=== PATIENT | male | born 1960 | race Caucasian/White ===

== ENCOUNTER 2017-04-17 07:30 | Inpatient (IN) | payer OTHER ==
[~2017-04-17] VITALS: Ht 188 cm; Wt 134.7 kg
[2017-05-14 13:50] LABS: CLARITY,URINE CLEAR (Clear); COLOR,URINE YELLOW (Yellow); GLUCOSE, URINE NEGATIVE (Neg); KETONES,URINE NEGATIVE (Neg); LEUKOCYTE ESTERASE ,URINE NEGATIVE (Neg); NITRITES, URINE NEGATIVE (Neg); OCCULT BLOOD,URINE TRACE-INTACT (Neg); PROTEIN,URINE NEGATIVE (Neg); UROBILINOGEN,URINE 0.2 E.U/dL (0.2-1.0)
[2017-05-14 13:52] LABS: UA COLLECTION TYPE VOIDED
[2017-05-14 14:01] LABS: BACTERIA,URINE NONE SEEN /HPF (Neg); RBC,URINE 0-2 /HPF (0-2); SQUAMOUS EPITHELIAL CELL,UR FEW /LPF (FEW); WBC,URINE 0-4 /HPF (0-4)
[2017-05-14 14:03] LABS: BASOPHILS % (AUTO) 0.4 % (0-1); EOSINOPHILS # (AUTO) 0.2 X10'3 (0-0.9); EOSINOPHILS % (AUTO) 2.3 % (0-6); LYMPHOCYTES # (AUTO) 2.6 X10'3 (1.1-4.8); LYMPHOCYTES % (AUTO) 24.7 % (21-51); MEAN CORPUSCULAR HEMOGLOBIN 28.8 PG (27.0-31.0); MEAN CORPUSCULAR HGB CONC 34.3 % (33.0-36.5); MEAN PLATELET VOLUME 8.9 FL (7.4-10.4); MONOCYTES # (AUTO) 0.8 X10'3 (0-0.9); MONOCYTES % (AUTO) 7.5 % (2-12); NEUTROPHILS # (AUTO) 6.9 X10'3 (1.8-7.7); NEUTROPHILS % (AUTO) 65.1 % (42-75); PRE OP HEMATOCRIT 47.9 % (42.0-52.0); PRE OP HEMOGLOBIN 16.4 g/dL (14.0-17.9); PRE OP PLATELET COUNT 235 X10'3 (140-440); RED CELL DISTRIBUTION WIDTH 13.3 % (11.5-14.5)
[2017-05-14] MEDS ORDERED: POTA10TA15 PO (14:06)
[2017-05-14] MEDS ORDERED: SYN0.088T PO (14:06)
[2017-05-14] MEDS ORDERED: SPIR25TA3 PO (14:06)
[2017-05-14] MEDS ORDERED: HYDR-3972 PO (14:06)
[2017-05-14] MEDS ORDERED: ATOR40TA72 PO (14:06)
[2017-05-14] MEDS ORDERED: SERT100T10 PO (14:06)
[2017-05-14] MEDS ORDERED: DICL50TA8 PO (14:06)
[2017-05-14] MEDS ORDERED: FURO20TA4 PO (14:06)
[2017-05-14] MEDS ORDERED: TOPI200C6 PO (14:06)
[2017-05-14] MEDS ORDERED: B6 PO (16:39)
[2017-05-14] MEDS ORDERED: MONT10TA24 PO (16:39)
[2017-05-14] MEDS ORDERED: FLAX100025 PO (16:39)
[2017-05-14] MEDS ORDERED: CYAN100070 PO (16:39)
[2017-05-14] MEDS ORDERED: FISH1CAP15 PO (16:39)
[2017-05-14] MEDS ORDERED: MAGN500C16 PO (16:39)
[2017-05-14] MEDS ORDERED: ARIP5TAB4 PO (16:39)
[2017-05-14] MEDS ORDERED: CHOL400C8 PO (16:40)
[2017-05-15] VITALS (17 sets, daily range): BP systolic 108–159; BP diastolic 72–100
[2017-05-15] MEDS ORDERED: ringers solution, lacted 1,000 ML IV SCH ×2 (05:00→13:29)
[2017-05-15] MEDS ORDERED: vancomycin inj 1,500 MG in normal saline 300ml IV soln IV ONE (05:30)
[2017-05-15] MEDS ORDERED: ceFAZolin inj. 3,000 MG in normal saline 100ml IV soln 100 ML IV ONE (05:30)
[2017-05-15] MEDS ORDERED: famotidine 20mg tablet PO ONE (05:30)
[2017-05-15] MEDS ORDERED: LIDOcaine 1% (10mg/ml) 2ml vial ONE (09:16)
[2017-05-15] MEDS ORDERED: ketorolac trometh. 30mg/ml inj. ONE (09:38)
[2017-05-15] MEDS ORDERED: ROPIVAcaine 0.5% (5mg/ml) 30ml vial ONE ×2 (09:38→09:59)
[2017-05-15] MEDS ORDERED: vancomycin 1,000mg inj ONE ×2 (09:39→14:49)
[2017-05-15] MEDS ORDERED: tetracaine 1% (10mg/ml) pres. free inj. ONE (09:59)
[2017-05-15] MEDS ORDERED: TRANEXAMIC ACID IV ONE ×4 (10:20)
[2017-05-15] MEDS ORDERED: NORMAL SALINE IV ONE ×4 (10:20)
[2017-05-15 10:46] LABS: ALANINE AMINOTRANSFERASE 51 U/L (12-78); ALBUMIN 3.8 G/DL (3.4-5.0); ALBUMIN/GLOBULIN RATIO 1.1 (1.1-1.5); ALKALINE PHOSPHATASE 84 IU/L (46-116); ANION GAP 8 (8-16); BILIRUBIN,TOTAL 0.7 MG/DL (0.1-1.0); BLOOD UREA NITROGEN 18 MG/DL (7-18); BUN/CREATININE RATIO 19.8 (5.4-32.0); CALCIUM 9.1 MG/DL (8.5-10.1); CHLORIDE 104 MMOL/L (99-107); CREATININE 0.91 MG/DL (0.60-1.10); GLUCOSE 116 MG/DL (70-104); SODIUM 142 MMOL/L (135-145); TOTAL CARBON DIOXIDE 29.8 MMOL/L (24-32); TOTAL PROTEIN 7.3 G/DL (6.4-8.2); eGFR 86 ML/MIN
[2017-05-15 10:47] LABS: ASPARTATE AMINO TRANSFERASE 34 U/L (10-37); POTASSIUM 4.4 MMOL/L (3.5-5.1)
[2017-05-15] MEDS ORDERED: fentaNYL/PF 50MCG/1 ML 2ML syringe ONE (12:07)
[2017-05-15] MEDS ORDERED: MORPHINE SULFATE/PF 0.5 MG/ML 10ML AMPUL ONE (12:07)
[2017-05-15] MEDS ORDERED: MIDAZolam 5mg/ml 2ml vial ONE (12:08)
[2017-05-15] MEDS ORDERED: naloxone 2mg/2ml inj 2 MG in normal saline 500ml IV soln 500 ML IV PRN (13:29)
[2017-05-15] MEDS ORDERED: diphenhydrAMINE 50 mg/ml inj IV PRN (13:30)
[2017-05-15] MEDS ORDERED: HYDROmorphone inj. 0.5 MG/0.5 ML DISP.SYRIN IV PRN ×4 (13:30→15:35)
[2017-05-15] MEDS ORDERED: ondansetron/PF 4mg/2ml inj IV PRN ×3 (13:30→15:35)
[2017-05-15] MEDS ORDERED: meperidine/PF 50mg/ml syringe IV PRN ×3 (13:30)
[2017-05-15] MEDS ORDERED: propofol inj 20 ML IV ONE ×4 (14:50)
[2017-05-15] MEDS ORDERED: bisacodyl 10mg suppository rectal RC PRN (15:35)
[2017-05-15] MEDS ORDERED: tranexamic acid inj. 1,000 MG in normal saline 100ml IV soln 100 ML IV ONE ×2 (15:35→19:15)
[2017-05-15] MEDS ORDERED: magnesium hydroxide 30ml (MOM) UD suspension PO PRN (15:35)
[2017-05-15] MEDS ORDERED: oxyCODONE IR 5mg (immed. release) tablet PO PRN (15:35)
[2017-05-15] MEDS ORDERED: acetaminophen 325mg tablet PO PRN ×2 (15:35→16:30)
[2017-05-15] MEDS ORDERED: HYDROcodone/acetaminophen 10/325mg tab PO PRN (15:35)
[2017-05-15] MEDS ORDERED: diphenhydrAMINE 25mg capsule PO PRN ×2 (15:35)
[2017-05-15] MEDS: cefazolin 1gm/NS 100mL 100 ML IV SCH (17:05)
[2017-05-15] MEDS: potassium cl 20mEq in 1/2 NS 1,000 ML IV SCH (17:05)
[2017-05-15] MEDS ORDERED: celeCOXIB 100mg capsule PO SCH (20:00)
[2017-05-15] MEDS ORDERED: vancomycin/NS 1 GM ADD-VANTAGE 250 ML IV ONE (20:00)
[2017-05-15] MEDS: gabapentin 300mg capsule PO SCH (20:53)
[2017-05-15] MEDS: sulindac 150mg tablet PO SCH (20:54)
[2017-05-15] MEDS: topiramate 100mg tablet PO SCH (20:54)
[2017-05-15] MEDS: ketorolac tromethamine 15mg/ml inj. IV SCH (20:54)
[2017-05-15] MEDS: acetaminophen 325mg tablet PO SCH (20:54)
[2017-05-15] MEDS ORDERED: sennosides 8.6mg tablet PO SCH (21:00)
[2017-05-15] MEDS: oxyCODONE IR 5mg (immed. release) tablet PO PRN (21:53)
[2017-05-16] MEDS: cefazolin 1gm/NS 100mL 100 ML IV SCH (00:04)
[2017-05-16 02:00] VITALS: BP 108/55
[2017-05-16] MEDS: ketorolac tromethamine 15mg/ml inj. IV SCH ×2 (02:07→07:18)
[2017-05-16] MEDS: acetaminophen 325mg tablet PO SCH ×2 (02:08→07:19)
[2017-05-16] MEDS: oxyCODONE IR 5mg (immed. release) tablet PO PRN ×3 (02:10→09:38)
[2017-05-16] MEDS: potassium cl 20mEq in 1/2 NS 1,000 ML IV SCH ×2 (04:10→07:26)
[2017-05-16 06:43] LABS: BASOPHILS % (AUTO) 0.3 % (0-1); EOSINOPHILS # (AUTO) 0.2 X10'3 (0-0.9); EOSINOPHILS % (AUTO) 1.6 % (0-6); HEMATOCRIT 37.4 % (42.0-52.0); HEMOGLOBIN 13.1 g/dl (14.0-17.9); LYMPHOCYTES # (AUTO) 1.8 X10'3 (1.1-4.8); LYMPHOCYTES % (AUTO) 12.7 % (21-51); MEAN CORPUSCULAR HEMOGLOBIN 29.2 PG (27.0-31.0); MEAN CORPUSCULAR HGB CONC 34.9 % (33.0-36.5); MEAN CORPUSCULAR VOLUME 83.7 FL (78-98); MEAN PLATELET VOLUME 8.9 FL (7.4-10.4); MONOCYTES # (AUTO) 0.7 X10'3 (0-0.9); MONOCYTES % (AUTO) 5.2 % (2-12); NEUTROPHILS # (AUTO) 11.3 X10'3 (1.8-7.7); NEUTROPHILS % (AUTO) 80.2 % (42-75); PLATELET COUNT 212 X10'3 (140-440); RED BLOOD COUNT 4.47 X10'6 (4.70-6.10); RED CELL DISTRIBUTION WIDTH 13.3 % (11.5-14.5)
[2017-05-16 07:03] LABS: ANION GAP 8 (8-16); CHLORIDE 102 MMOL/L (99-107); POTASSIUM 4.3 MMOL/L (3.5-5.1); SODIUM 137 MMOL/L (135-145); TOTAL CARBON DIOXIDE 27.3 MMOL/L (24-32)
[2017-05-16] MEDS: topiramate 100mg tablet PO SCH (07:18)
[2017-05-16] MEDS: gabapentin 300mg capsule PO SCH (07:18)
[2017-05-16] MEDS: sulindac 150mg tablet PO SCH (07:20)
[2017-05-16] MEDS ORDERED: spironolactone 25 MG tablet PO SCH (08:00)
[2017-05-16] MEDS ORDERED: atorvastatin 20mg tablet PO SCH (08:00)
[2017-05-16] MEDS ORDERED: furosemide 20MG tablet PO SCH (08:00)
[2017-05-16] MEDS ORDERED: cyanocobalamin 500mcg tablet PO SCH (08:00)
[2017-05-16] MEDS ORDERED: OMEGA-3/DHA/EPA/FISH OIL 1 EACH CAPSULE.DR PO SCH (08:00)
[2017-05-16] MEDS ORDERED: montelukast 10mg tablet PO SCH (08:00)
[2017-05-16] MEDS ORDERED: FLAXSEED 1000 MG PO SCH (08:00)
[2017-05-16] MEDS ORDERED: aripiprazole 5mg tablet PO SCH (08:00)
[2017-05-16] MEDS ORDERED: levoTHYROXINE 75mcg tablet PO SCH (08:00)
[2017-05-16] MEDS ORDERED: potassium Cl oral solution 20 MEQ/15 ML PO SCH (08:00)
[2017-05-16] MEDS ORDERED: sertraline 50mg tablet PO SCH (08:00)
[2017-05-16] MEDS ORDERED: magnesium oxide 400mg tablet PO SCH (08:00)
[2017-05-16] MEDS ORDERED: pyridoxine 50mg tablet PO SCH (08:00)
[2017-05-16 08:16] VITALS: BP 105/63
[2017-05-16] MEDS ORDERED: aspirin 325mg tablet PO SCH (08:30)
[2017-05-16] MEDS ORDERED: ASPI-1 PO (09:23)
== END 2017-05-16 09:55 | disposition home or self-care (01) | DRG 470 ==
LOC: PAS IN 05-15 08:33 → EDSTATUS 05-15 12:30 → ORTHO 4S 05-15 16:30
PROVIDERS: ADMIT Orthopaedic Surgery; ATTEND Orthopaedic Surgery
PROC: 8E0Y0CZ Robotic Assisted Procedure of Lower Extremity, Open Approach (ICD-10-PCS; 2017-05-15)
PROC: 8E0YXBZ Computer Assisted Procedure of Lower Extremity (ICD-10-PCS; 2017-05-15)
PROC: 0SRD0J9 Replacement of Left Knee Joint with Synthetic Substitute, Cemented, Open Approach (ICD-10-PCS; principal; 2017-05-15 12:02)
DX: M17.32 Unilateral post-traumatic osteoarthritis, left knee (principal); D62 Acute posthemorrhagic anemia; E03.9 Hypothyroidism, unspecified; E78.5 Hyperlipidemia, unspecified; E66.9 Obesity, unspecified; I10 Essential (primary) hypertension; G89.29 Other chronic pain; M54.9 Dorsalgia, unspecified; F32.9 Major depressive disorder, single episode, unspecified; Z79.899 Other long term (current) drug therapy; Z82.49 Family history of ischemic heart disease and other diseases of the circulatory system; Z80.8 Family history of malignant neoplasm of other organs or systems; Z68.38 Body mass index [BMI] 38.0-38.9, adult
CPT/HCPCS: 36415; 80051; 80053; 81001; 85025; 85610; 85730; 87070; 93005; 97116; 97161; A6255; A6455; A7000; C1713; C1758; C1776; J0690; J1885; J2250; J2274; J2704; J2795; J3010; J3370; J3490; J7030; J7120